=== PATIENT | male | born 1935 | race Caucasian/White ===

== ENCOUNTER 2017-01-29 17:26 | Inpatient (IN) | payer MEDICARE, OTHER ==
[~2017-01-29] VITALS: Ht 170.2 cm; Wt 59.0 kg
--- NOTE | 2017-01-31 17:30 | NUR ---
ADMITTED A 81 YEAR OLD MALE PATIENT FROM [facility] REPORT GIVEN BY MEIR LOTT WITH DIAGNOSES OF CHF, COPD EXACERBATION, PNEUMONIA, SEPSIS, RESPIRATORY FAILURE AND NSTEMI. PATIENT WAS ACCOMPANIED BY 2 EMT STAFF ON A GURNEY, DROWSY. PER EMT STAFF, PATIENT WAS GIVEN XANAX PRIOR TO [facility]SP[facility] DUE TO ANXIETY. ASSESSMENT DONE, NO SOB, DISTRESS OR DISCOMFORTS NOTED AT THIS TIME. PATIENT REMAINED TO BE DROWSY. ALL NEEDS WERE ATTENDED AND ANTICIPATED, CALL LIGHT PLACED WITHIN REACH. PATIENT WAS ORIENTED TO PATIENT ROOM, HOW TO USE THE CALL LIGHT. CALL LIGHT PLACED WITHIN REACH. WILL CONTINUE TO MONITOR CLOSELY.
[2017-01-31] MEDS ORDERED: Z GUARD REMEDY PASTE 57 GM TUBE TOP PRN (18:15)
[2017-01-31] MEDS ORDERED: FLUT1DIS28 INH (18:42)
[2017-01-31] MEDS ORDERED: RIVA15TA PO (18:42)
[2017-01-31] MEDS ORDERED: LACT1CAP57 PO (18:42)
[2017-01-31] MEDS ORDERED: PRED20TA PO (18:42)
[2017-01-31] MEDS ORDERED: ALBU8.5H8 INH (18:42)
[2017-01-31] MEDS ORDERED: ALPR1TAB7 PO (18:42)
[2017-01-31] MEDS ORDERED: ATOR40TA PO (18:42)
[2017-01-31] MEDS ORDERED: TAMS0.4C34 PO (18:42)
[2017-01-31] MEDS ORDERED: HYDR-3326 PO (18:42)
[2017-01-31] MEDS ORDERED: IPRA0.2S48 IH (18:42)
[2017-01-31] MEDS ORDERED: LEVO500T90 PO (18:42)
[2017-01-31] MEDS ORDERED: LISI-607 PO (18:42)
[2017-01-31] MEDS ORDERED: ESCI10TA55 PO (18:42)
[2017-01-31] MEDS ORDERED: DONE10TA44 PO (18:42)
[2017-01-31] MEDS ORDERED: ASPI81TA31 PO (18:42)
[2017-01-31] MEDS ORDERED: PRED10TA PO (18:42)
[2017-01-31] MEDS ORDERED: HYDR-4076 PO (18:42)
[2017-01-31] MEDS ORDERED: ESOM40CA PO (18:42)
[2017-01-31] MEDS ORDERED: MAGN30OR PO (18:55)
[2017-01-31] MEDS ORDERED: ONDA4SYR IVP (18:55)
[2017-01-31] MEDS ORDERED: IPRA0.2S48 NEB (18:55)
[2017-01-31] MEDS ORDERED: LEVO750P3 IV (18:55)
[2017-01-31] MEDS ORDERED: MUPI22OI2 TP (18:55)
[2017-01-31] MEDS ORDERED: ACET-73 PO (18:55)
[2017-01-31] MEDS ORDERED: ALBU2.5V13 IH (18:55)
--- NOTE | 2017-01-31 19:00 | NUR ---
Endorsed routine admission, medication reconciliation done by Dr. Bubba Ho. Pictures taken, attached to chart.
[2017-01-31] MEDS ORDERED: ACETAMINOPHEN ES 500 MG TABLET PO PRN (19:15)
[2017-01-31] MEDS ORDERED: hydrALAZINE HCL 25 MG TABLET PO PRN (19:15)
--- NOTE | 2017-01-31 19:30 | NUR ---
Patient received in bed. Alert and verbally responsive with episodes of confusion. Able to make needs known. Patient noted to be restless and also moaning out loud. No c/o pain and discomfort at this time. No acute distress noted. No SOB. On room air. Patient noted left upper arm Midline. Patent and intact. Kept clean and dry. Spoke with Anastasiia Harvey who is a neighbor of the patient and helps take care of him. She was also seeing him when he was at [facility]. Anastasiia was able to answer some questions for me regarding patients history. Anastasiia also notified me of patient's nephew, Sukhjinder Patterson who lives in [place]. He is aware patient is here at [facility]. All needs attended to promptly. Call light within reach. Will continue to monitor.
[2017-01-31 20:00] VITALS: BP 157/96
[2017-01-31] MEDS: IPRATROPIUM BROMIDE 0.5 MG/2.5 ML NEBU NEB SCH ×2 (20:24→23:30)
[2017-01-31] MEDS: ALBUTEROL SULFATE 2.5 MG/ 0.5 ML NEBU IH SCH ×2 (20:25→23:30)
[2017-01-31] MEDS: TAMSULOSIN HCL 0.4 MG CAP.SR.24H PO SCH (22:04)
[2017-01-31] MEDS: LISINOPRIL 5 MG TABLET PO SCH (22:04)
[2017-01-31] MEDS: MUPIROCIN 2% OINT 22 GM TUBE TP SCH (22:05)
[2017-01-31] MEDS: ATORVASTATIN 40 MG TABLET PO SCH (22:05)
[2017-01-31] MEDS: ALPRAZOLAM 0.5 MG TABLET PO PRN (22:05)
[2017-02-01] MEDS: HYDROCODONE/APAP 5-325MG TABLET PO PRN ×2 (00:54→20:42)
[2017-02-01] MEDS: IPRATROPIUM BROMIDE 0.5 MG/2.5 ML NEBU NEB SCH ×6 (03:30→23:30)
[2017-02-01] MEDS: ALBUTEROL SULFATE 2.5 MG/ 0.5 ML NEBU IH SCH ×6 (03:30→23:30)
--- NOTE | 2017-02-01 06:34 | NUR ---
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 All contact precautions taken. Slept intermittently throughout the night. Patient yelling and looking for phone director home. Verbalized to patient that he just came in with his cell phone and no director home. No c/o pain and discomfort. No acute distress. No SOB. Kept clean and dry. Assisted with fluids. No aspiration noted. All needs attended to promptly. Call light within reach. Will continue to monitor.
[2017-02-01 07:40] LABS: EOSINOPHILS # (AUTO) 0.3 K/uL (0.0-0.7); EOSINOPHILS % (AUTO) 1.7 % (0.0-7.0); HEMATOCRIT 44.9 % (36.7-47.1); HEMOGLOBIN 15.2 g/dL (12.5-16.3); LYMPHOCYTES # (AUTO) 2.7 K/uL (20.0-40.0); LYMPHOCYTES % (AUTO) 15.6 % (20.5-51.5); MEAN CORPUSCULAR HEMOGLOBIN 27.7 uug (23.8-33.4); MEAN CORPUSCULAR HGB CONC 34 g/dL (32.5-36.3); MEAN CORPUSCULAR VOLUME 81.9 fL (73.0-96.2); MONOCYTES # (AUTO) 0.9 K/uL (2.0-10.0); MONOCYTES % (AUTO) 5.3 % (0.0-11.0); NEUTROPHILS # (AUTO) 13.2 K/uL (1.8-8.9); NEUTROPHILS % (AUTO) 77.4 % (38.5-71.5); PLATELET COUNT (AUTO) 193 K/uL (152-348); RED BLOOD CELL COUNT(AUTO) 5.48 MIL/uL (4.06-5.63)
[2017-02-01 08:06] LABS: CARBON DIOXIDE 26 mmol/L (21-32); CHLORIDE 105 mmol/L (98-107); CREATININE 1.2 mg/dL (0.6-1.3); GLUCOSE 145 mg/dL (74-106); PHOSPHOROUS 3.3 mg/dL (2.5-4.9); POTASSIUM 3.2 mmol/L (3.5-5.1); UREA NITROGEN, BLOOD 28 mg/dL (7-18)
[2017-02-01] MEDS: FLUTICASONE/VILANTEROL 1 EACH BLST.W.DEV INH SCH (08:07)
[2017-02-01] MEDS: ASPIRIN 81 MG TAB.CHEW PO SCH (08:09)
[2017-02-01] MEDS: ALPRAZOLAM 0.5 MG TABLET PO PRN ×2 (08:09→16:45)
[2017-02-01] MEDS: LACTOBACILLUS RHAMNOSUS GG 1 EACH CAPSULE PO SCH ×2 (08:09→16:48)
[2017-02-01] MEDS: predniSONE 20 MG TABLET PO SCH (08:10)
[2017-02-01] MEDS: LISINOPRIL 5 MG TABLET PO SCH ×2 (08:10→16:51)
[2017-02-01] MEDS: RIVAROXABAN 15 MG TABLET PO SCH ×2 (08:11→16:45)
[2017-02-01 08:52] VITALS: BP 157/84
[2017-02-01] MEDS ORDERED: FLUTICASONE/SALMETEROL 250/50 INHALER INH SCH (09:00)
[2017-02-01 09:10] LABS: CHOLESTEROL 130 mg/dL (<200); HDL CHOLESTEROL 45 mg/dL (40-60); TRIGLYCERIDES 99 MG/DL (30-150)
[2017-02-01] MEDS: MUPIROCIN 2% OINT 22 GM TUBE TP SCH (09:15)
[2017-02-01] MEDS ORDERED: ESCITALOPRAM OXALATE 10 MG TABLET PO SCH (10:51)
[2017-02-01 11:10] LABS: LYMPHOCYTES % (MANUAL) 22 % (20-40); METAMYELOCYTES % 1 % (0-1); MONOCYTES % (MANUAL) 7 % (2-10); NEUTROPHILS % (MANUAL) 70 % (42-75)
[2017-02-01] MEDS: DONEPEZIL 10 MG TABLET PO SCH (12:38)
[2017-02-01] MEDS: ESCITALOPRAM OXALATE 10 MG TABLET PO SCH (12:38)
[2017-02-01] MEDS ORDERED: POTASSIUM CHLORIDE 20 MEQ TAB.PRT.SR PO ONE (13:00)
--- NOTE | 2017-02-01 19:30 | NUR ---
Received patient laying in bed, resting. AAO x3. Noted patient moaning, talking out loud, and appeared to be restless. Patient denied of any concerns. No acute distress noted. No c/o pain or discomfort at this time. Left upper arm midline patent and intact. Contact isolation maintained. Safety measures observed. Call light within reach. Will continue to monitor.
--- NOTE | 2017-02-01 19:35 | NUR ---
Patient refused to get his vital signs taken. Risks and benefits explained. Teachings provided. Still refused. Will continue to monitor.
[2017-02-01] MEDS: ATORVASTATIN 40 MG TABLET PO SCH (20:38)
[2017-02-01] MEDS: TAMSULOSIN HCL 0.4 MG CAP.SR.24H PO SCH (20:38)
[2017-02-02] MEDS: ALBUTEROL SULFATE 2.5 MG/ 0.5 ML NEBU IH SCH ×5 (08:00→23:30)
[2017-02-02] MEDS: IPRATROPIUM BROMIDE 0.5 MG/2.5 ML NEBU NEB SCH ×5 (08:00→23:30)
[2017-02-02] MEDS: FLUTICASONE/VILANTEROL 1 EACH BLST.W.DEV INH SCH (09:00)
[2017-02-02] MEDS: RIVAROXABAN 15 MG TABLET PO SCH ×2 (10:06→16:15)
[2017-02-02] MEDS: ASPIRIN 81 MG TAB.CHEW PO SCH (10:08)
[2017-02-02] MEDS: LACTOBACILLUS RHAMNOSUS GG 1 EACH CAPSULE PO SCH ×2 (10:08→16:14)
[2017-02-02] MEDS: predniSONE 20 MG TABLET PO SCH (10:08)
[2017-02-02] MEDS: DONEPEZIL 10 MG TABLET PO SCH (10:10)
[2017-02-02] MEDS: ESCITALOPRAM OXALATE 10 MG TABLET PO SCH (10:10)
[2017-02-02] MEDS: HYDROCODONE/APAP 5-325MG TABLET PO PRN ×2 (10:11→21:20)
[2017-02-02] MEDS: LISINOPRIL 5 MG TABLET PO SCH ×2 (10:12→16:14)
[2017-02-02] MEDS: ALPRAZOLAM 0.5 MG TABLET PO PRN (16:13)
[2017-02-02] MEDS ORDERED: DICYCLOMINE HCL 20 MG/2 ML AMPUL IM ONE (19:15)
--- NOTE | 2017-02-02 19:30 | NUR ---
Received patient laying in bed. AAO x3. Moaning and making loud sounds. No acute distress noted. No SOB. Dr. Garrett at bedside talking to the patient. Pt complaining of abdominal pain, Dr. Garrett ordered Dicyclomine HCL IM 20 MG ONCE for colic. Will follow order as prescribed. Contact isolation maintained. Safety measures observed. Call light within reach. Will continue to monitor.
[2017-02-02 20:00] VITALS: BP 134/87
[2017-02-02] MEDS: ATORVASTATIN 40 MG TABLET PO SCH (21:20)
[2017-02-02] MEDS: TAMSULOSIN HCL 0.4 MG CAP.SR.24H PO SCH (21:20)
[2017-02-03] MEDS: ALBUTEROL SULFATE 2.5 MG/ 0.5 ML NEBU IH SCH ×6 (03:26→23:59)
[2017-02-03] MEDS: IPRATROPIUM BROMIDE 0.5 MG/2.5 ML NEBU NEB SCH ×6 (03:26→23:59)
--- NOTE | 2017-02-03 05:45 | NUR ---
Patient slept intermittently at night. Episodes of moaning a few times, attended to promptly but patient denied any concerns and went back to sleep. Left IV midline upper arm patent and intact. No acute distress noted. No c/o pain or discomfort. All needs attended t/o the night. Contact isolation maintained. Safety measures maintained. Call light within reach. Continue to monitor.
[2017-02-03 08:00] VITALS: BP 149/86
[2017-02-03] MEDS: ASPIRIN 81 MG TAB.CHEW PO SCH (08:51)
[2017-02-03] MEDS: predniSONE 20 MG TABLET PO SCH (08:51)
[2017-02-03] MEDS: ESCITALOPRAM OXALATE 10 MG TABLET PO SCH (08:52)
[2017-02-03] MEDS: LACTOBACILLUS RHAMNOSUS GG 1 EACH CAPSULE PO SCH ×2 (08:52→17:21)
[2017-02-03] MEDS: LISINOPRIL 5 MG TABLET PO SCH ×2 (08:53→17:23)
[2017-02-03] MEDS: DONEPEZIL 10 MG TABLET PO SCH (08:53)
[2017-02-03] MEDS: RIVAROXABAN 15 MG TABLET PO SCH ×2 (09:44→17:22)
[2017-02-03] MEDS: FLUTICASONE/VILANTEROL 1 EACH BLST.W.DEV INH SCH (09:46)
--- NOTE | 2017-02-03 10:16 | NUR ---
pt seen on rounding. pt bp elevated. pt tolerates room air satting wnl. no sob noted. pt continues to need reorientation because pt shows signs of confusion. pt is able to ambulate with assistance using a walker. pt had a bowel movement with OT. nurse was not notified so stool sample was not obtained. pt took meds as prescribed. pt continues to refuse some commands but follow others. pt complains of no pain and participating on OT therapy. will continue to monitor.
[2017-02-03] MEDS: ALPRAZOLAM 0.5 MG TABLET PO PRN (16:06)
[2017-02-03] MEDS ORDERED: ACETAMINOPHEN/CODEINE 300-60 MG TABLET PO PRN ×2 (17:00→17:15)
[2017-02-03] MEDS ORDERED: ONDANSETRON HCL 4 MG TABLET PO PRN (17:00)
[2017-02-03] MEDS ORDERED: HYDROCODONE/APAP 10-325 MG TABLET PO SCH (17:00)
--- NOTE | 2017-02-03 17:37 | NUR ---
pt found to be a opiod addiction stated by dr santana. pt put on regimen of tylenol with codeine q 8h. pt has withdrawal symptoms from opiod addiction. pt found to have 90 dollars of godinez bedside after nephew gave a visit. will continue to monitor.
[2017-02-03] MEDS ORDERED: METHADONE HCL 10 MG TABLET PO SCH (18:00)
--- NOTE | 2017-02-03 19:10 | NUR ---
PT COMPLAINING OF CHEST PAIN, SAYS "IT FEELS LIKE CRUSHING" DENIES ANY ARM OR SHOULDER PAIN. VS 125/78, HR 105, O2 93% ROOM AIR. PLACED O2 2L NC. AWAITING TO HEAR FROM Addendum: 02/03/17 at 2205 by EMILE RODRIGUEZ RN CHAIN CARRIER MADE AWARE.
--- NOTE | 2017-02-03 19:23 | NUR ---
pt complaining on chest pain. labs chest x ray and ekg ordered. called esther and dr lee. both mds aware. awaiting new orders from doctors.
[2017-02-03] MEDS: HYDROCODONE/APAP 5-325MG TABLET PO PRN ×2 (19:42→23:49)
[2017-02-03] MEDS ORDERED: NITROGLYCERIN 0.4 MG/TAB BOTTLE SL ONE ×2 (19:45→20:04)
[2017-02-03 19:59] LABS: BASOPHILS # (AUTO) 0.3 K/uL (0.0-8.0); HEMATOCRIT 48.9 % (40-50); HEMOGLOBIN 16.3 G/DL (14.0-18.0); LYMPHOCYTES # (AUTO) 2.1 K/UL (0.8-4.8); LYMPHOCYTES % (AUTO) 7.9 % (20.5-51.5); MEAN CORPUSCULAR HEMOGLOBIN 27.6 UUG (27.0-31.0); MEAN CORPUSCULAR HGB CONC 33 g/dL (32.0-37.0); MEAN CORPUSCULAR VOLUME 83.1 FL (82.0-92.0); MONOCYTES # (AUTO) 0.3 K/UL (0.1-1.30); NEUTROPHILS # (AUTO) 23.6 K/UL (1.8-8.9); NEUTROPHILS % (AUTO) 90.1 % (38.5-71.5); PLATELET COUNT (AUTO) 276 K/UL (150-450); RED BLOOD CELL COUNT(AUTO) 5.89 MIL/UL (4.7-6.1)
[2017-02-03 20:00] VITALS: BP 119/78
[2017-02-03] MEDS ORDERED: NITROGLYCERIN 0.3 MG/TAB BOTTLE SL PRN (20:00)
--- NOTE | 2017-02-03 20:00 | NUR ---
DR MORTENSEN ORDERED NITRO 0.4MG SL ONCE.
[2017-02-03 20:02] LABS: CARBON DIOXIDE 25 mmol/L (21-32); CHLORIDE 102 mmol/L (98-107); CREATININE 1.6 mg/dL (0.6-1.3); GLUCOSE 188 mg/dL (74-106); POTASSIUM 4.2 mmol/L (3.5-5.1); UREA NITROGEN, BLOOD 37 mg/dL (7-18)
[2017-02-03 20:05] LABS: WHITE BLOOD COUNT (AUTO) 26.3 K/UL (4.0-11.2)
[2017-02-03 20:19] LABS: BAND % (MANUAL) 6 % (0-10); LYMPHOCYTES % (MANUAL) 10 % (20-40); MONOCYTES % (MANUAL) 2 % (2-10); NEUTROPHILS % (MANUAL) 82 % (42-75)
--- NOTE | 2017-02-03 20:20 | NUR ---
SPOKE WITH DR MORTENSEN CONCERNING ELEVATED WBC 26.3, NO NEW ORDERS GIVEN AT THIS TIME. SPOKE WITH NEPHEW, ANTONIA WAGNER, GAVE UPDATE OF UNCLE'S STATUS. VERBALIZED UNDERSTANDING. WILL CONTINUE TO MONITOR.
[2017-02-03] MEDS: TAMSULOSIN HCL 0.4 MG CAP.SR.24H PO SCH (20:49)
[2017-02-03] MEDS: ATORVASTATIN 40 MG TABLET PO SCH (20:49)
--- NOTE | 2017-02-03 22:00 | NUR ---
NO COMPLAINTS OF CHEST PAIN AT THIS TIME. PT STATES "NO PAIN AT ALL". WILL CONTINUE TO MONITOR.
[2017-02-03] MEDS ORDERED: NITROGLYCERIN 0.3 MG/TAB BOTTLE SL ONE (22:15)
--- NOTE | 2017-02-03 23:02 | NUR ---
FOR NITRO 0.4MG SL DR ORDERED ONCE DOSE, NOT PRN, EDITED DOSE TO ONCE AND RECURRED AT 2214. DR ONLY ORDERED ONE DOSE OF NITRO. ONLY ONE DOSE WAS GIVEN AT 2000.
--- NOTE | 2017-02-04 02:40 | NUR ---
Pt asleep. No sob noted. HHN tx not given. RN Reba lowe.
[2017-02-04] MEDS: IPRATROPIUM BROMIDE 0.5 MG/2.5 ML NEBU NEB SCH ×6 (03:00→22:53)
[2017-02-04] MEDS: ALBUTEROL SULFATE 2.5 MG/ 0.5 ML NEBU IH SCH ×6 (03:00→22:53)
[2017-02-04] MEDS: ACETAMINOPHEN/CODEINE 300-60 MG TABLET PO SCH ×3 (05:34→21:13)
[2017-02-04] MEDS ORDERED: ACETAMINOPHEN/CODEINE 300-60 MG TABLET ONE (05:44)
--- NOTE | 2017-02-04 06:43 | NUR ---
PT RESTING IN BED. NO DISTRESS NOTED. MIDLINE INTACT AND PATENT. NO COMPLAINTS OF CHEST PAIN. NORCO GIVEN FOR GENERALIZED PAIN. SLEPT WELL THROUGHOUT THE NIGHT. PT STATES "I FEEL SO MUCH BETTER". CLEAN AND DRY. SAFETY MAINTAINED. CALL LIGHT WITHIN REACH.
[2017-02-04 07:32] LABS: CARBON DIOXIDE 26 mmol/L (21-32); CHLORIDE 105 mmol/L (98-107); CREATININE 1.5 mg/dL (0.6-1.3); GLUCOSE 93 mg/dL (74-106); MAGNESIUM 1.9 mg/dL (1.8-2.4); PHOSPHOROUS 4.4 mg/dL (2.5-4.9); POTASSIUM 3.6 mmol/L (3.5-5.1); UREA NITROGEN, BLOOD 35 mg/dL (7-18)
[2017-02-04 08:00] VITALS: BP 114/67
[2017-02-04 08:14] LABS: BASOPHILS % (AUTO) 0.1 % (0.0-2.0); EOSINOPHILS % (AUTO) 0.1 % (0.0-7.0); HEMATOCRIT 41.7 % (36.7-47.1); HEMOGLOBIN 14.4 g/dL (12.5-16.3); LYMPHOCYTES % (AUTO) 12.9 % (20.5-51.5); MEAN CORPUSCULAR HEMOGLOBIN 28.2 uug (23.8-33.4); MEAN CORPUSCULAR HGB CONC 35 g/dL (32.5-36.3); MEAN CORPUSCULAR VOLUME 81.8 fL (73.0-96.2); MONOCYTES % (AUTO) 4.1 % (0.0-11.0); NEUTROPHILS # (AUTO) 19.5 K/uL (1.8-8.9); NEUTROPHILS % (AUTO) 82.8 % (38.5-71.5); PLATELET COUNT (AUTO) 211 K/uL (152-348); RED BLOOD CELL COUNT(AUTO) 5.09 MIL/uL (4.06-5.63); WHITE BLOOD COUNT (AUTO) 23.5 K/uL (3.6-10.2)
[2017-02-04] MEDS: LACTOBACILLUS RHAMNOSUS GG 1 EACH CAPSULE PO SCH ×2 (08:46→17:17)
[2017-02-04] MEDS: predniSONE 20 MG TABLET PO SCH (08:46)
[2017-02-04] MEDS: DONEPEZIL 10 MG TABLET PO SCH (08:47)
[2017-02-04] MEDS: ESCITALOPRAM OXALATE 10 MG TABLET PO SCH (08:47)
[2017-02-04] MEDS: FLUTICASONE/VILANTEROL 1 EACH BLST.W.DEV INH SCH (08:47)
[2017-02-04] MEDS: LISINOPRIL 5 MG TABLET PO SCH ×2 (08:47→17:00)
[2017-02-04] MEDS: ASPIRIN 81 MG TAB.CHEW PO SCH (08:47)
[2017-02-04] MEDS: RIVAROXABAN 15 MG TABLET PO SCH ×2 (08:49→17:18)
[2017-02-04 10:01] LABS: BAND % (MANUAL) 4 % (0-10); LYMPHOCYTES % (MANUAL) 13 % (20-40); MONOCYTES % (MANUAL) 2 % (2-10); NEUTROPHILS % (MANUAL) 81 % (42-75)
--- NOTE | 2017-02-04 10:14 | NUR ---
pt seen on rounding. pt states that he feels better compared to last night. pt was asking for codeine but already given as scheduled. was instrcuted to wait. pt understands. pt given meds. bp stable. no chest pain. pt took breakfast and wanted to have a shave. will continue to monitor. stool sample still pending.
--- NOTE | 2017-02-04 18:14 | NUR ---
pt blood pressure decreased at night. with held blood pressure medications. pt asymptomatic. pt has not had a bowel movement therefore no stool sample was obtained. notified md rios and ordered dulcolax 2 tab daily. pt assisted to needs during shift. pt continues to overestimate own ability during shift and was advised not to try to walk on his own to prevent falls. continues to overestimate. pt given pain meds as scheduled. no signs of anxiety noted. will endorse to hands and dial inspector nurse.
[2017-02-04] MEDS ORDERED: BISACODYL 5 MG TABLET.DR PO ONE (18:15)
--- NOTE | 2017-02-04 19:30 | NUR ---
RECEIVED PT FROM DAY SHIFT NURSE. SHIFT REPORT AT BEDSIDE. FAMILY AT BEDSIDE. PATIENT ALERT BUT SLIGHTLY CONFUSED. PT COMPLAINING OF ABDOMINAL PAIN AT START OF SHIFT DUE TO CONSTIPATION. DULCOLAX ORDERED FROM DAY SHIFT NURSE BY MD. WAITING FOR MEDICATION TO TAKE EFFECT. WAITING TO OBTAIN STOOL SAMPLE FROM PT FOR STOOL OCCULT BLOOD TEST. NO SOB, OR ACUTE DISTRESS NOTED. BP AT 106/69 AT START OF SHIFT, INCREASING FROM PREVIOUS BP DURING DAY SHIFT. PERTINENT ASSESSMENT DONE. SAFETY MEASURES IMPLEMENTED. CALL LIGHT PLACED WITHIN REACH OF PT. WILL CONTINUE TO MONITOR PT THROUGH OUT SHIFT.
[2017-02-04 20:41] VITALS: BP 104/69
[2017-02-04] MEDS: ATORVASTATIN 40 MG TABLET PO SCH (20:41)
[2017-02-04] MEDS: TAMSULOSIN HCL 0.4 MG CAP.SR.24H PO SCH (20:41)
--- NOTE | 2017-02-04 22:12 | NUR ---
CONTACTED DR. MORTENSEN REGARDING PT STATUS WITH MRSA. WHEN PT WAS ADMITTED TO ARU ON 01/31, PT WAS MRSA + FOR NARES. THERE WAS AN ORDER FOR BACTROBAN OINTMENT, HOWEVER, THE ORDER WAS STOPPED ON THE . ASKED DR. MORTENSEN IF WE COULD DO A REPEAT MRSA TEST IN AM. MD FAGAN'D REPEAT MRSA SWAB TEST. WILL CONTINUE TO MONITOR PT.
--- NOTE | 2017-02-04 23:37 | NUR ---
MRSA SWAB COLLECTION COMPLETED PER MD ORDERED. WAITING FOR RESULTS FROM LAB.
[2017-02-05 00:56] LABS: *OCCULT BLOOD STOOL POSITIVE (NEGATIVE)
[2017-02-05] MEDS: IPRATROPIUM BROMIDE 0.5 MG/2.5 ML NEBU NEB SCH ×6 (02:33→22:34)
[2017-02-05] MEDS: ALBUTEROL SULFATE 2.5 MG/ 0.5 ML NEBU IH SCH ×6 (02:33→22:34)
--- NOTE | 2017-02-05 02:34 | NUR ---
Pt asleep. No distress noted. HHN tx not given. RN Garcia aware.
[2017-02-05] MEDS: ACETAMINOPHEN/CODEINE 300-60 MG TABLET PO SCH ×3 (06:32→21:30)
--- NOTE | 2017-02-05 07:00 | NUR ---
PT SLEPT INTERMITTENTLY THROUGH OUT THE SHIFT. PT COMPLAINED OF ABDOMINAL PAIN AT START OF SHIFT DUE TO CONSTIPATION. AFTER BM, PT WAS RELIEVED OF PAIN. NO SIGNS OF SOB OR ACUTE DISTRESS NOTED. ALL NEEDS ATTENDED TO. MEDICATIONS ADMINISTERED ORDERED. CALL LIGHT WITHIN REACH OF PT. WILL ENDORSE TO MORNING SHIFT NURSE.
[2017-02-05 07:18] LABS: BASOPHILS # (AUTO) 0.2 K/uL (0.0-8.0); BASOPHILS % (AUTO) 0.6 % (0.0-2.0); EOSINOPHILS % (AUTO) 0.1 % (0.0-7.0); HEMOGLOBIN 14.7 G/DL (14.0-18.0); LYMPHOCYTES # (AUTO) 3.4 K/UL (0.8-4.8); LYMPHOCYTES % (AUTO) 10.7 % (20.5-51.5); MEAN CORPUSCULAR HEMOGLOBIN 28.4 UUG (27.0-31.0); MEAN CORPUSCULAR HGB CONC 34 g/dL (32.0-37.0); MEAN CORPUSCULAR VOLUME 83.1 FL (82.0-92.0); MONOCYTES # (AUTO) 0.3 K/UL (0.1-1.30); MONOCYTES % (AUTO) 0.9 % (0.0-11.0); NEUTROPHILS # (AUTO) 27.5 K/UL (1.8-8.9); NEUTROPHILS % (AUTO) 87.7 % (38.5-71.5); PLATELET COUNT (AUTO) 219 K/UL (150-450); RED BLOOD CELL COUNT(AUTO) 5.17 MIL/UL (4.7-6.1)
[2017-02-05 07:22] VITALS: BP 97/54
[2017-02-05 07:40] LABS: CARBON DIOXIDE 23 mmol/L (21-32); CHLORIDE 103 mmol/L (98-107); CREATININE 1.9 mg/dL (0.6-1.3); GLUCOSE 103 mg/dL (74-106); MAGNESIUM 2.1 mg/dL (1.8-2.4); PHOSPHOROUS 5.6 mg/dL (2.5-4.9); POTASSIUM 5.7 mmol/L (3.5-5.1); UREA NITROGEN, BLOOD 50 mg/dL (7-18)
--- NOTE | 2017-02-05 07:56 | NUR ---
PATIENT NOTED SITTING IN BED, AWAKE, LOOKING AT CELL PHONE, SBAR RECEIVED FROM NIGHT NURSE, DENIES PAIN AT THIS TIME, NO SIGNS OF DISTRESS, CALL LIGHT IN REACH, BED LOCKED AND IN LOWEST POSITION
[2017-02-05 08:07] LABS: WHITE BLOOD COUNT (AUTO) 31.4 K/UL (4.0-11.2)
--- NOTE | 2017-02-05 08:13 | NUR ---
SUKHI MORTENSEN NOTIFIED OF NEW CRITICAL LAB VALUE...WBC (31.4)..AWAITING NEW ORDERS
[2017-02-05] MEDS: LISINOPRIL 5 MG TABLET PO SCH (09:00)
[2017-02-05] MEDS: DONEPEZIL 10 MG TABLET PO SCH (09:00)
[2017-02-05] MEDS: predniSONE 20 MG TABLET PO SCH (09:00)
[2017-02-05] MEDS: ASPIRIN 81 MG TAB.CHEW PO SCH (09:00)
[2017-02-05] MEDS: LACTOBACILLUS RHAMNOSUS GG 1 EACH CAPSULE PO SCH ×2 (09:00→16:21)
[2017-02-05] MEDS: RIVAROXABAN 15 MG TABLET PO SCH (09:07)
[2017-02-05] MEDS: FLUTICASONE/VILANTEROL 1 EACH BLST.W.DEV INH SCH (09:08)
[2017-02-05] MEDS ORDERED: IV NS 1000 ML 1,000 ML IV ONE (10:30)
[2017-02-05 10:52] LABS: BAND % (MANUAL) 3 % (0-10); LYMPHOCYTES % (MANUAL) 13 % (20-40); METAMYELOCYTES % 1 % (0-1); MONOCYTES % (MANUAL) 1 % (2-10); MYELOCYTES % 1 % (0-0); NEUTROPHILS % (MANUAL) 81 % (42-75)
[2017-02-05] MEDS: RIVAROXABAN 10 MG TABLET PO SCH (16:21)
[2017-02-05] MEDS ORDERED: RIVAROXABAN 15 MG TABLET PO SCH (17:00)
--- NOTE | 2017-02-05 19:30 | NUR ---
Received patient sleeping comfortably in bed. Left upper arm midline noted. NS 100 mL/ hr running at this time. No acute distress noted. As per endorsement from day shift Gisela RN, patient's WBC is critically high and DNP [place] was notified and he ordered to taper down prednisone as it is the reason for the increased WBC. MRSA result pending, if positive, call DNP [place]. Contact isolation maintained. Safety measures observed. Call light within reach. Will continue to monitor.
[2017-02-05 20:00] VITALS: BP 90/50
[2017-02-05] MEDS: ATORVASTATIN 40 MG TABLET PO SCH (21:30)
[2017-02-05] MEDS: TAMSULOSIN HCL 0.4 MG CAP.SR.24H PO SCH (21:30)
--- NOTE | 2017-02-05 21:30 | NUR ---
Urine clean catch, collected and sent to lab.
[2017-02-05 22:01] LABS: *BILIRUBIN,URIN NEGATIVE (NEGATIVE); *BLOOD, URINE 3+ (NEGATIVE); *CLARITY,URINE SLIGHTLY CLOUDY (CLEAR); *COLOR,URINE YELLOW (YELLOW); *KETONES,URINE NEGATIVE (NEGATIVE); *PROTEIN,URINE NEGATIVE (NEGATIVE); *UROBILINOGEN,URINE 0.2 E.U./dl (NORMAL); LEUKOCYTE ESTERASE ,URINE NEGATIVE (NEGATIVE); NITRITE, URINE NEGATIVE (NEGATIVE); UGLUCOSE NEGATIVE (NEGATIVE)
[2017-02-05 22:11] LABS: BACTERIA,URINE NONE SEEN /HPF (NONE SEEN); RBC,URINE 20-50 /HPF (0-3); SQUAMOUS EPITHELIAL CELL,UR FEW /HPF (NONE SEEN); URIC ACID CRYSTALS,URINE FEW /HPF (NONE SEEN)
[2017-02-05 22:12] LABS: *CREATININE,URINE 115.5 mg/dL (30-125); *URINE TOTAL PROTEIN RANDOM 28.1 mg/dL (<150/24HR)
--- NOTE | 2017-02-05 23:00 | NUR ---
Urinalysis result came back. Notified Dr. Ho. Ordered levaquin 500 mg PO daily x7 days. New order noted.
[2017-02-06] MEDS: ALBUTEROL SULFATE 2.5 MG/ 0.5 ML NEBU IH SCH ×6 (03:30→23:50)
[2017-02-06] MEDS: IPRATROPIUM BROMIDE 0.5 MG/2.5 ML NEBU NEB SCH ×6 (03:30→23:50)
--- NOTE | 2017-02-06 05:49 | NUR ---
Patient slept comfortably t/o the night. No acute distress noted. Pain medication given as prescribed. Contact isolation maintained. Safety measures observed.Call light within reach. Will endorse to day shift RN. Continue to monitor.
[2017-02-06] MEDS: ACETAMINOPHEN/CODEINE 300-60 MG TABLET PO SCH ×3 (06:29→21:31)
[2017-02-06 07:02] LABS: EOSINOPHILS % (AUTO) 0.1 % (0.0-7.0); HEMATOCRIT 38.5 % (36.7-47.1); HEMOGLOBIN 12.9 g/dL (12.5-16.3); LYMPHOCYTES # (AUTO) 3.1 K/uL (20.0-40.0); LYMPHOCYTES % (AUTO) 12.8 % (20.5-51.5); MEAN CORPUSCULAR HEMOGLOBIN 27.9 uug (23.8-33.4); MEAN CORPUSCULAR HGB CONC 34 g/dL (32.5-36.3); MEAN CORPUSCULAR VOLUME 82.9 fL (73.0-96.2); MONOCYTES # (AUTO) 0.7 K/uL (2.0-10.0); MONOCYTES % (AUTO) 2.8 % (0.0-11.0); NEUTROPHILS # (AUTO) 20.2 K/uL (1.8-8.9); NEUTROPHILS % (AUTO) 84.3 % (38.5-71.5); PLATELET COUNT (AUTO) 208 K/uL (152-348); RED BLOOD CELL COUNT(AUTO) 4.65 MIL/uL (4.06-5.63)
[2017-02-06 07:24] VITALS: BP 112/58
[2017-02-06 07:27] LABS: ALANINE AMINOTRANSFERASE 35 U/L (16-63); ALKALINE PHOSPHATASE 46 U/L (50-136); ASPARTATE AMINOTRANSFERASE 13 U/L (15-37); BILIRUBIN,TOTAL 0.5 mg/dL (0.2-1.0); CARBON DIOXIDE 25 mmol/L (21-32); CHLORIDE 106 mmol/L (98-107); CREATINE KINASE, TOTAL 60 U/L (39-308); CREATININE 1.5 mg/dL (0.6-1.3); GLUCOSE 88 mg/dL (74-106); MAGNESIUM 1.9 mg/dL (1.8-2.4); PHOSPHOROUS 3.6 mg/dL (2.5-4.9); POTASSIUM 4.1 mmol/L (3.5-5.1); TOTAL PROTEIN, SERUM 5.8 g/dL (6.4-8.2); UREA NITROGEN, BLOOD 43 mg/dL (7-18)
[2017-02-06 08:16] LABS: LYMPHOCYTES % (MANUAL) 13 % (20-40); MONOCYTES % (MANUAL) 3 % (2-10); NEUTROPHILS % (MANUAL) 84 % (42-75)
[2017-02-06] MEDS ORDERED: LEVOFLOXACIN 500 MG TABLET PO SCH (09:00)
[2017-02-06] MEDS: DONEPEZIL 10 MG TABLET PO SCH (09:50)
[2017-02-06] MEDS: ASPIRIN 81 MG TAB.CHEW PO SCH (09:50)
[2017-02-06] MEDS: FLUTICASONE/VILANTEROL 1 EACH BLST.W.DEV INH SCH (09:50)
[2017-02-06] MEDS: predniSONE 20 MG TABLET PO SCH (09:50)
[2017-02-06] MEDS: LACTOBACILLUS RHAMNOSUS GG 1 EACH CAPSULE PO SCH ×2 (09:50→17:15)
[2017-02-06] MEDS: RIVAROXABAN 10 MG TABLET PO SCH ×2 (09:51→17:13)
[2017-02-06] MEDS: HYDROCODONE/APAP 5-325MG TABLET PO PRN (10:05)
[2017-02-06] MEDS: LEVOFLOXACIN 250 MG TABLET PO SCH (10:05)
--- NOTE | 2017-02-06 19:30 | NUR ---
Received patient resting comfortably in bed. AAO X3. No acute distress noted. No SOB. Contact isolation maintained. Safety measures observed. Call light within reach. Will continue to monitor.
[2017-02-06 20:00] VITALS: BP 120/60
[2017-02-06] MEDS: TAMSULOSIN HCL 0.4 MG CAP.SR.24H PO SCH (21:35)
[2017-02-06] MEDS: ATORVASTATIN 20 MG TABLET PO SCH (21:35)
[2017-02-07] MEDS: ALBUTEROL SULFATE 2.5 MG/ 0.5 ML NEBU IH SCH ×6 (03:18→23:33)
[2017-02-07] MEDS: IPRATROPIUM BROMIDE 0.5 MG/2.5 ML NEBU NEB SCH ×6 (03:18→23:33)
--- NOTE | 2017-02-07 05:24 | NUR ---
Patient slept comfortably throughout the night. No acute distress noted. No discomfort at this time. Contact precaution observed. Safety measures maintained. Call light within reach. Will endorse to day shift RN. Continue to monitor.
[2017-02-07] MEDS: ACETAMINOPHEN/CODEINE 300-60 MG TABLET PO SCH ×3 (06:14→21:15)
[2017-02-07 08:49] VITALS: BP 108/64
[2017-02-07] MEDS: DONEPEZIL 10 MG TABLET PO SCH (08:59)
[2017-02-07] MEDS: ASPIRIN 81 MG TAB.CHEW PO SCH (08:59)
[2017-02-07] MEDS: predniSONE 20 MG TABLET PO SCH (09:00)
[2017-02-07] MEDS: LACTOBACILLUS RHAMNOSUS GG 1 EACH CAPSULE PO SCH ×2 (09:00→17:45)
[2017-02-07] MEDS: FLUTICASONE/VILANTEROL 1 EACH BLST.W.DEV INH SCH (09:05)
[2017-02-07] MEDS: RIVAROXABAN 10 MG TABLET PO SCH ×2 (09:05→17:47)
--- NOTE | 2017-02-07 10:40 | NUR ---
Pt reports a c/o familiar chest pain 12/24 described as crushing, and radiating from mid chest after eating snack. V/S taken 111/59, pulse 86, 96% RA, denies SOB and with no other distress noted at this time. Pt states Xanax as relieving factor with previous episodes. MD notified. PRN Tylenol and Xanax administered as ordered. Will continue to monitor closely.
[2017-02-07] MEDS: ALPRAZOLAM 0.5 MG TABLET PO PRN (10:41)
--- NOTE | 2017-02-07 11:22 | NUR ---
Pt reports a tolerable level of pain 2/10, no SOB, and no acute distress noted at this time. Continuing to monitor for any changes in status. Call light within reach.
[2017-02-07] MEDS: LEVOFLOXACIN 250 MG TABLET PO SCH (11:40)
--- NOTE | 2017-02-07 12:00 | NUR ---
Pt reports no c/o pain at this time. Orders received from MD for CBC, CMP, mg, PO4, Troponin, and BNP to be drawn. Blood work drawn and sent to lab. Will continue to monitor and f/u with plan of care.
[2017-02-07 12:07] LABS: A/G RATIO 1.3 (0.7-1.7); ALBUMIN 3.3 g/dL (2.9-4.4); ALPHA-1-GLOBULIN 0.2 g/dL (0.0-0.4); ALPHA-2-GLOBULIN 0.8 g/dL (0.4-1.0); BETA GLOBULIN 0.8 g/dL (0.7-1.3); GAMMA GLOBULIN 0.7 g/dL (0.4-1.8); GLOBULIN, TOTAL 2.5 g/dL (2.2-3.9); M-SPIKE Not Observed g/dL (Not Observed)
--- NOTE | 2017-02-07 12:30 | NUR ---
Pt WBC lab values of 21.[address] Oliveros made aware. Will carry out orders to continue to monitor vitals until further notice.
[2017-02-07 12:54] LABS: ALANINE AMINOTRANSFERASE 39 U/L (16-63); ALKALINE PHOSPHATASE 52 U/L (50-136); ASPARTATE AMINOTRANSFERASE 21 U/L (15-37); BILIRUBIN,TOTAL 0.5 mg/dL (0.2-1.0); CARBON DIOXIDE 25 mmol/L (21-32); CHLORIDE 100 mmol/L (98-107); CREATININE 1.5 mg/dL (0.6-1.3); GLUCOSE 130 mg/dL (74-106); MAGNESIUM 1.7 mg/dL (1.8-2.4); PHOSPHOROUS 3.1 mg/dL (2.5-4.9); TOTAL PROTEIN, SERUM 6.7 g/dL (6.4-8.2); UREA NITROGEN, BLOOD 36 mg/dL (7-18)
[2017-02-07 12:58] LABS: HEMATOCRIT 43.7 % (40-50); HEMOGLOBIN 14.2 G/DL (14.0-18.0); LYMPHOCYTES % (AUTO) 9.3 % (20.5-51.5); MEAN CORPUSCULAR HEMOGLOBIN 27.1 UUG (27.0-31.0); MEAN CORPUSCULAR HGB CONC 33 g/dL (32.0-37.0); MEAN CORPUSCULAR VOLUME 83.4 FL (82.0-92.0); MONOCYTES # (AUTO) 0.1 K/UL (0.1-1.30); MONOCYTES % (AUTO) 0.5 % (0.0-11.0); NEUTROPHILS # (AUTO) 19.5 K/UL (1.8-8.9); NEUTROPHILS % (AUTO) 90.2 % (38.5-71.5); PLATELET COUNT (AUTO) 227 K/UL (150-450); RED BLOOD CELL COUNT(AUTO) 5.24 MIL/UL (4.7-6.1); WHITE BLOOD COUNT (AUTO) 21.6 K/UL (4.0-11.2)
[2017-02-07 13:28] LABS: BAND % (MANUAL) 2 % (0-10); LYMPHOCYTES % (MANUAL) 11 % (20-40); MONOCYTES % (MANUAL) 2 % (2-10); NEUTROPHILS % (MANUAL) 85 % (42-75)
--- NOTE | 2017-02-07 13:53 | NUR ---
INTERDISCIPLINARY TEAM SUMMARY
--- NOTE | 2017-02-07 14:45 | NUR ---
Pt denies any c/o pain at this time. Request to hold medication at this time due to comfort. V/S 102/59, 86, 20, 98.1 temp, 96% on O2 with breathing Tx currently taking place by RT, pain rated 0/10. Will continue to monitor and f/u.
--- NOTE | 2017-02-07 19:12 | NUR ---
Pt v/s have continued to remain stable with no changes in condition. All comfort and safety measures have been met at this time. Pt reports no complaints of pain and no acute distress to be noted. Will continue to monitor for any changes and endorse shift event to oncoming night monitor.
--- NOTE | 2017-02-07 19:30 | NUR ---
Received patient sleeping comfortably. No acute distress noted. Contact isolation of MRSA nares observed. Safety measures maintained. Call light within reach. Will continue to monitor.
[2017-02-07 20:00] VITALS: BP 117/76
[2017-02-07] MEDS: ATORVASTATIN 20 MG TABLET PO SCH (21:15)
[2017-02-07] MEDS: MUPIROCIN 2% OINT 22 GM TUBE NS SCH (21:15)
[2017-02-07] MEDS: TAMSULOSIN HCL 0.4 MG CAP.SR.24H PO SCH (21:17)
[2017-02-08] MEDS: ALBUTEROL SULFATE 2.5 MG/ 0.5 ML NEBU IH SCH ×6 (03:35→22:43)
[2017-02-08] MEDS: IPRATROPIUM BROMIDE 0.5 MG/2.5 ML NEBU NEB SCH ×6 (03:35→22:43)
--- NOTE | 2017-02-08 05:32 | NUR ---
Patient slept comfortably t/o the night. Vital signs stable. No acute distress noted. Medication given as prescribed and tolerated. All needs attended to promptly. Contact isolation observed for MRSA nares. Safety measures maintained. Call light within reach. Will endorse to day shift RN. Continue to monitor.
[2017-02-08] MEDS: ACETAMINOPHEN/CODEINE 300-60 MG TABLET PO SCH ×3 (06:00→21:06)
[2017-02-08 08:26] VITALS: BP 107/52
[2017-02-08] MEDS: MUPIROCIN 2% OINT 22 GM TUBE NS SCH ×2 (09:02→21:08)
[2017-02-08] MEDS: FLUTICASONE/VILANTEROL 1 EACH BLST.W.DEV INH SCH (09:02)
[2017-02-08] MEDS: predniSONE 20 MG TABLET PO SCH (09:03)
[2017-02-08] MEDS: DONEPEZIL 10 MG TABLET PO SCH (09:03)
[2017-02-08] MEDS: ASPIRIN 81 MG TAB.CHEW PO SCH (09:03)
[2017-02-08] MEDS: LACTOBACILLUS RHAMNOSUS GG 1 EACH CAPSULE PO SCH ×2 (09:03→17:11)
[2017-02-08] MEDS: RIVAROXABAN 10 MG TABLET PO SCH ×2 (09:04→17:13)
--- NOTE | 2017-02-08 09:30 | NUR ---
SBAR report received near bedside, board updated. Pt assessed, states no c/o pain or discomfort at this time. Pt compliant with all routine morning medications. Both personal items and call light within reach. All comfort and safety measures met. Will continue to monitor.
[2017-02-08] MEDS: LEVOFLOXACIN 250 MG TABLET PO SCH (11:56)
--- NOTE | 2017-02-08 18:11 | NUR ---
Pt sitting up comfortably in bed. OT reports Pt refused to work with therapists even after several attempts to provide therapy and care. Pt has made his request known to be assisted with shaving tomorrow morning. All safety measures in place and call light within reach. Will continue to monitor and endorse night club manager.
--- NOTE | 2017-02-08 19:30 | NUR ---
RECEIVED PT FROM DAY SHIFT NURSE. SHIFT REPORT AT BEDSIDE. PATIENT LYING IN BED COMFORTABLY WITH NO SIGNS OF PAIN, SOB, OR ACUTE DISTRESS. PERTINENT ASSESSMENTS DONE. SAFETY MEASURES IMPLEMENTED. CALL LIGHT PLACED WITHIN REACH. WILL CONTINUE TO MONITOR PT THROUGH OUT SHIFT.
[2017-02-08 20:00] VITALS: BP 112/64
[2017-02-08] MEDS: TAMSULOSIN HCL 0.4 MG CAP.SR.24H PO SCH (21:06)
[2017-02-08] MEDS: ATORVASTATIN 20 MG TABLET PO SCH (21:07)
[2017-02-09] MEDS: IPRATROPIUM BROMIDE 0.5 MG/2.5 ML NEBU NEB SCH ×6 (02:32→22:41)
[2017-02-09] MEDS: ALBUTEROL SULFATE 2.5 MG/ 0.5 ML NEBU IH SCH ×6 (02:32→22:41)
--- NOTE | 2017-02-09 02:32 | NUR ---
Pt asleep. No respiratory distress noted. HHN tx not given. RN Garcia aware.
[2017-02-09] MEDS: ACETAMINOPHEN/CODEINE 300-60 MG TABLET PO SCH ×3 (06:21→22:10)
--- NOTE | 2017-02-09 06:52 | NUR ---
PT SLEPT WELL THROUGH OUT SHIFT. NO SIGNS OF PAIN, SOB, OR ACUTE DISTRESS. ALL NEEDS ATTENDED TO. MEDICATIONS ADMINISTERED ORDERED. CALL LIGHT WITHIN REACH OF PT. SAFETY MEASURES IMPLEMENTED. WILL ENDORSE TO DAY SHIFT NURSE.
[2017-02-09 07:48] LABS: BASOPHILS % (AUTO) 0.2 % (0.0-2.0); EOSINOPHILS # (AUTO) 0.1 K/uL (0.0-0.7); EOSINOPHILS % (AUTO) 0.4 % (0.0-7.0); HEMATOCRIT 41.3 % (40-50); HEMOGLOBIN 13.8 G/DL (14.0-18.0); LYMPHOCYTES # (AUTO) 3.2 K/UL (0.8-4.8); LYMPHOCYTES % (AUTO) 21.5 % (20.5-51.5); MEAN CORPUSCULAR HEMOGLOBIN 27.5 UUG (27.0-31.0); MEAN CORPUSCULAR HGB CONC 33 g/dL (32.0-37.0); MEAN CORPUSCULAR VOLUME 82.4 FL (82.0-92.0); MONOCYTES # (AUTO) 0.8 K/UL (0.1-1.30); MONOCYTES % (AUTO) 5.2 % (0.0-11.0); NEUTROPHILS # (AUTO) 10.9 K/UL (1.8-8.9); NEUTROPHILS % (AUTO) 72.7 % (38.5-71.5); PLATELET COUNT (AUTO) 168 K/UL (150-450); RED BLOOD CELL COUNT(AUTO) 5.01 MIL/UL (4.7-6.1)
[2017-02-09 08:04] LABS: CARBON DIOXIDE 27 mmol/L (21-32); CHLORIDE 99 mmol/L (98-107); CREATININE 1.4 mg/dL (0.6-1.3); GLUCOSE 94 mg/dL (74-106); MAGNESIUM 1.5 mg/dL (1.8-2.4); PHOSPHOROUS 3.7 mg/dL (2.5-4.9); POTASSIUM 3.7 mmol/L (3.5-5.1); UREA NITROGEN, BLOOD 25 mg/dL (7-18)
[2017-02-09 08:14] LABS: BAND % (MANUAL) 1 % (0-10); LYMPHOCYTES % (MANUAL) 30 % (20-40); MONOCYTES % (MANUAL) 8 % (2-10); NEUTROPHILS % (MANUAL) 61 % (42-75)
[2017-02-09 08:56] VITALS: BP 109/71
[2017-02-09] MEDS: predniSONE 20 MG TABLET PO SCH (09:23)
[2017-02-09] MEDS: ASPIRIN 81 MG TAB.CHEW PO SCH (09:23)
[2017-02-09] MEDS: FLUTICASONE/VILANTEROL 1 EACH BLST.W.DEV INH SCH (09:23)
[2017-02-09] MEDS: LACTOBACILLUS RHAMNOSUS GG 1 EACH CAPSULE PO SCH ×2 (09:23→17:13)
[2017-02-09] MEDS: DONEPEZIL 10 MG TABLET PO SCH (09:23)
[2017-02-09] MEDS: RIVAROXABAN 10 MG TABLET PO SCH ×2 (09:24→17:13)
[2017-02-09] MEDS: MUPIROCIN 2% OINT 22 GM TUBE NS SCH ×2 (09:30→22:10)
[2017-02-09] MEDS: LEVOFLOXACIN 250 MG TABLET PO SCH (11:34)
[2017-02-09] MEDS ORDERED: MAGNESIUM OXIDE 400 MG TABLET PO ONE (12:45)
[2017-02-09] MEDS: DOCUSATE SODIUM 100 MG CAPSULE PO SCH ×2 (13:50→22:09)
--- NOTE | 2017-02-09 15:57 | NUR ---
Pt alert and compliant with all routine morning and afternoon medications, including new orders. Pt assessed, no c/o pain, SOB, or any acute distress. V/S stable. Pt assisted to shave and Pt family visited at bedside this afternoon. Prune juice and Colace provided to Pt in order to improve bowel function r/t constipation. All comfort and safety measures met. Call light and personal items within reach. Will continue to monitor.
--- NOTE | 2017-02-09 18:28 | NUR ---
Pt sitting up comfortably in bed. Compliant with evening medication administration. No SOB or acute distress noted at this time. Pt reports effective pain management during this shift from Tylenol administration Q8hrs. All safety and comfort measures in place. Call light within place and personal items within reach. Will continue to monitor and endorse to slot shift supervisor.
[2017-02-09 20:00] VITALS: BP 118/60
--- NOTE | 2017-02-09 21:00 | NUR ---
Received pt on bed alert, awake and oriented. No acute distress noted. Calm and cooperative to care. Complained of abdominal pain, routine pain meds given as ordered, tolerated well. No SOB noted. Vital signs stable. Contact precaution observed and maintained. Call light within reach. All needs met. Will continue to monitor.
[2017-02-09] MEDS: TAMSULOSIN HCL 0.4 MG CAP.SR.24H PO SCH (22:09)
[2017-02-09] MEDS: ATORVASTATIN 20 MG TABLET PO SCH (22:09)
[2017-02-10] MEDS: IPRATROPIUM BROMIDE 0.5 MG/2.5 ML NEBU NEB SCH ×6 (02:31→23:54)
[2017-02-10] MEDS: ALBUTEROL SULFATE 2.5 MG/ 0.5 ML NEBU IH SCH ×6 (02:32→23:54)
--- NOTE | 2017-02-10 02:32 | NUR ---
Pt asleep. No respiratory distress noted. HHN tx not given. MEIR lowe.
[2017-02-10] MEDS: ACETAMINOPHEN/CODEINE 300-60 MG TABLET PO SCH ×3 (06:25→21:18)
--- NOTE | 2017-02-10 06:55 | NUR ---
Pt slept well throughout the shift. No s/sx of distress. Denies pain. No SOB noted. Due meds given as ordered and well tolerated. Call light within reach. All needs attended
[2017-02-10 08:25] VITALS: BP 102/61
[2017-02-10] MEDS: ASPIRIN 81 MG TAB.CHEW PO SCH (08:37)
[2017-02-10] MEDS: LACTOBACILLUS RHAMNOSUS GG 1 EACH CAPSULE PO SCH ×2 (08:37→16:57)
[2017-02-10] MEDS: DOCUSATE SODIUM 100 MG CAPSULE PO SCH ×2 (08:37→21:18)
[2017-02-10] MEDS: RIVAROXABAN 10 MG TABLET PO SCH ×2 (08:37→16:57)
[2017-02-10] MEDS: predniSONE 5 MG TABLET PO SCH (08:37)
[2017-02-10] MEDS: DONEPEZIL 10 MG TABLET PO SCH (08:37)
[2017-02-10] MEDS: MUPIROCIN 2% OINT 22 GM TUBE NS SCH ×2 (08:38→21:17)
[2017-02-10] MEDS: FLUTICASONE/VILANTEROL 1 EACH BLST.W.DEV INH SCH (08:38)
[2017-02-10] MEDS ORDERED: predniSONE 20 MG TABLET PO SCH (09:00)
[2017-02-10] MEDS: LEVOFLOXACIN 250 MG TABLET PO SCH (12:24)
--- NOTE | 2017-02-10 19:30 | NUR ---
Received patient sleeping. No s/s of distress. Respirations even and unlabored. Call light within reach. Will continue to monitor.
[2017-02-10 20:00] VITALS: BP 118/67
[2017-02-10] MEDS: TAMSULOSIN HCL 0.4 MG CAP.SR.24H PO SCH (21:17)
[2017-02-10] MEDS: ATORVASTATIN 20 MG TABLET PO SCH (21:17)
[2017-02-11] MEDS: ALBUTEROL SULFATE 2.5 MG/ 0.5 ML NEBU IH SCH ×6 (03:09→23:29)
[2017-02-11] MEDS: IPRATROPIUM BROMIDE 0.5 MG/2.5 ML NEBU NEB SCH ×6 (03:09→23:29)
--- NOTE | 2017-02-11 06:38 | NUR ---
Patient awake, no complaints of pain. Kept clean and comfortable. Slept well through the night. Frequent checks done. No s/s of distress. Needs attended. Due meds given. Call light kept within reach. Requested 6AM dose of Tylenol be given with breakfast. Endorsed accordingly.
[2017-02-11] MEDS: ACETAMINOPHEN/CODEINE 300-60 MG TABLET PO SCH ×3 (06:52→21:22)
[2017-02-11] MEDS: DONEPEZIL 10 MG TABLET PO SCH (08:10)
[2017-02-11] MEDS: LACTOBACILLUS RHAMNOSUS GG 1 EACH CAPSULE PO SCH ×2 (08:10→18:57)
[2017-02-11] MEDS: DOCUSATE SODIUM 100 MG CAPSULE PO SCH ×2 (08:10→18:57)
[2017-02-11] MEDS: FLUTICASONE/VILANTEROL 1 EACH BLST.W.DEV INH SCH (08:10)
[2017-02-11] MEDS: ASPIRIN 81 MG TAB.CHEW PO SCH (08:10)
[2017-02-11] MEDS: RIVAROXABAN 10 MG TABLET PO SCH ×2 (08:11→18:58)
[2017-02-11] MEDS: predniSONE 5 MG TABLET PO SCH (08:15)
[2017-02-11] MEDS: MUPIROCIN 2% OINT 22 GM TUBE NS SCH ×2 (08:16→20:31)
[2017-02-11] MEDS: LEVOFLOXACIN 250 MG TABLET PO SCH (11:00)
[2017-02-11] MEDS: ALPRAZOLAM 0.5 MG TABLET PO PRN (18:58)
--- NOTE | 2017-02-11 19:30 | NUR ---
PT ALERT AND ORIENTED IN BED. NO DISTRESS NOTED. COMPLIANT WITH NURSING CARE. CLEAN AND DRY. TURNED AND REPOSITIONED. CONTACT ISOLATION MAINTAINED. SAFETY MAINTAINED. CALL LIGHT WITHIN REACH.
[2017-02-11 20:00] VITALS: BP 98/69
[2017-02-11] MEDS: ATORVASTATIN 20 MG TABLET PO SCH (20:31)
[2017-02-11] MEDS: TAMSULOSIN HCL 0.4 MG CAP.SR.24H PO SCH (20:31)
[2017-02-12] MEDS: ALBUTEROL SULFATE 2.5 MG/ 0.5 ML NEBU IH SCH ×6 (03:30→23:19)
[2017-02-12] MEDS: IPRATROPIUM BROMIDE 0.5 MG/2.5 ML NEBU NEB SCH ×6 (03:30→23:19)
[2017-02-12] MEDS: ACETAMINOPHEN/CODEINE 300-60 MG TABLET PO SCH ×3 (06:17→21:46)
--- NOTE | 2017-02-12 07:05 | NUR ---
PT ALERT AND ORIENTED IN BED. NO DISTRESS NOTED. ISOLATION MAINTAINED. CLEAN AND DRY. TURNED AND REPOSITIONED. SAFETY MAINTAINED. CALL LIGHT WITHIN REACH.
[2017-02-12 07:10] VITALS: BP 102/57
[2017-02-12 07:35] LABS: CARBON DIOXIDE 27 mmol/L (21-32); CHLORIDE 103 mmol/L (98-107); CREATININE 1.4 mg/dL (0.6-1.3); GLUCOSE 99 mg/dL (74-106); MAGNESIUM 1.7 mg/dL (1.8-2.4); PHOSPHOROUS 3.4 mg/dL (2.5-4.9); POTASSIUM 3.6 mmol/L (3.5-5.1); UREA NITROGEN, BLOOD 26 mg/dL (7-18)
[2017-02-12 08:09] LABS: BASOPHILS # (AUTO) 0.2 K/uL (0.0-8.0); BASOPHILS % (AUTO) 1.4 % (0.0-2.0); EOSINOPHILS # (AUTO) 0.1 K/uL (0.0-0.7); EOSINOPHILS % (AUTO) 0.6 % (0.0-7.0); HEMATOCRIT 40.2 % (40-50); HEMOGLOBIN 13.5 G/DL (14.0-18.0); LYMPHOCYTES # (AUTO) 2.7 K/UL (0.8-4.8); LYMPHOCYTES % (AUTO) 21.5 % (20.5-51.5); MEAN CORPUSCULAR HEMOGLOBIN 27.7 UUG (27.0-31.0); MEAN CORPUSCULAR HGB CONC 34 g/dL (32.0-37.0); MEAN CORPUSCULAR VOLUME 82.2 FL (82.0-92.0); MONOCYTES # (AUTO) 0.9 K/UL (0.1-1.30); MONOCYTES % (AUTO) 6.8 % (0.0-11.0); NEUTROPHILS # (AUTO) 8.8 K/UL (1.8-8.9); NEUTROPHILS % (AUTO) 69.7 % (38.5-71.5); PLATELET COUNT (AUTO) 162 K/UL (150-450); RED BLOOD CELL COUNT(AUTO) 4.88 MIL/UL (4.7-6.1); WHITE BLOOD COUNT (AUTO) 12.7 K/UL (4.0-11.2)
[2017-02-12] MEDS: ASPIRIN 81 MG TAB.CHEW PO SCH (08:46)
[2017-02-12] MEDS: LACTOBACILLUS RHAMNOSUS GG 1 EACH CAPSULE PO SCH ×2 (08:46→16:51)
[2017-02-12] MEDS: predniSONE 5 MG TABLET PO SCH (08:46)
[2017-02-12] MEDS: DONEPEZIL 10 MG TABLET PO SCH (08:46)
[2017-02-12] MEDS: FLUTICASONE/VILANTEROL 1 EACH BLST.W.DEV INH SCH (08:48)
[2017-02-12] MEDS: RIVAROXABAN 10 MG TABLET PO SCH ×2 (08:49→16:50)
[2017-02-12] MEDS: MUPIROCIN 2% OINT 22 GM TUBE NS SCH ×2 (08:53→20:13)
[2017-02-12] MEDS: DOCUSATE SODIUM 100 MG CAPSULE PO SCH ×2 (09:00→20:11)
--- NOTE | 2017-02-12 10:06 | NUR ---
PATIENT NOTED SITTING UP IN BED, BED LOCKED AN IN LOWEST POSITION, NO COMPLAINTS OF PAIN, NO SIGNS OF DISTRESS, CALL LIGHT IN REACH
[2017-02-12] MEDS: LEVOFLOXACIN 250 MG TABLET PO SCH (11:13)
[2017-02-12] MEDS ORDERED: MAGNESIUM OXIDE 400 MG TABLET PO ONE (16:00)
[2017-02-12] MEDS ORDERED: BISACODYL 5 MG TABLET.DR PO ONE (19:30)
--- NOTE | 2017-02-12 19:30 | NUR ---
Received patient in bed, alert, awake and verbally responsive. O2 via NC on 2LPM continuous, breathing even and non labored and was on moderate high back position. Vital signs checked, stable : BP 136/59, T 98, P 59, R 18, O2 sat 96%. Seen by Dr. Garrett, relayed lab. results with new orders noted and carried out. Dr. Oliveros also made aware of lab. results, with new orders noted and carried out too. When asked if she was in pain, she said her pain level was 4/10 on R hip but refused to take pain meds. Placed ice compress on her R hip at this time. Safety precautions provided. Placed call light in reach. Will continue to monitor.
[2017-02-12 19:39] VITALS: BP 103/45
[2017-02-12 19:58] VITALS: BP 109/66
[2017-02-12] MEDS: TAMSULOSIN HCL 0.4 MG CAP.SR.24H PO SCH (20:11)
[2017-02-12] MEDS: ATORVASTATIN 20 MG TABLET PO SCH (20:11)
[2017-02-13] MEDS: ALBUTEROL SULFATE 2.5 MG/ 0.5 ML NEBU IH SCH ×6 (03:22→22:34)
[2017-02-13] MEDS: IPRATROPIUM BROMIDE 0.5 MG/2.5 ML NEBU NEB SCH ×6 (03:22→22:35)
[2017-02-13 06:49] LABS: CARBON DIOXIDE 28 mmol/L (21-32); CHLORIDE 101 mmol/L (98-107); CREATININE 1.2 mg/dL (0.6-1.3); GLUCOSE 99 mg/dL (74-106); MAGNESIUM 1.7 mg/dL (1.8-2.4); POTASSIUM 3.7 mmol/L (3.5-5.1); UREA NITROGEN, BLOOD 23 mg/dL (7-18)
[2017-02-13] MEDS ORDERED: LACTULOSE 20 G/30 ML LIQUID UDC PO PRN (07:45)
[2017-02-13 08:43] VITALS: BP 103/63
[2017-02-13] MEDS ORDERED: predniSONE 5 MG TABLET PO SCH (09:00)
--- NOTE | 2017-02-13 09:00 | NUR ---
Received patient awake in bed, alert x3. Not in any form of distress. In room air O2 Sat WNL. No chest pains noted. With Abdominal pain, routine pain medication given.
[2017-02-13] MEDS: ACETAMINOPHEN/CODEINE 300-60 MG TABLET PO SCH ×3 (09:51→22:04)
[2017-02-13] MEDS: MUPIROCIN 2% OINT 22 GM TUBE NS SCH (09:52)
[2017-02-13] MEDS: FLUTICASONE/VILANTEROL 1 EACH BLST.W.DEV INH SCH (09:52)
[2017-02-13] MEDS: RIVAROXABAN 10 MG TABLET PO SCH ×2 (09:53→17:41)
[2017-02-13] MEDS: DONEPEZIL 10 MG TABLET PO SCH (09:54)
[2017-02-13] MEDS: predniSONE 10 MG TABLET PO SCH (09:54)
[2017-02-13] MEDS: ASPIRIN 81 MG TAB.CHEW PO SCH (09:54)
[2017-02-13] MEDS: LACTOBACILLUS RHAMNOSUS GG 1 EACH CAPSULE PO SCH ×2 (09:54→17:41)
[2017-02-13] MEDS: DOCUSATE SODIUM 100 MG CAPSULE PO SCH ×2 (09:54→20:41)
[2017-02-13] MEDS ORDERED: MAGNESIUM OXIDE 400 MG TABLET PO ONE (12:45)
--- NOTE | 2017-02-13 18:44 | NUR ---
Patient resting in bed. No complaints of pain or discomfort. No SOB or chest pains. Assisted no needs promptly. Call light within reach.
--- NOTE | 2017-02-13 19:30 | NUR ---
Patient seen during rounds on bed, sleeping but arouses easily. Vital signs are WNL T 98.4, P 76, R 19, O2 97% on room air. Denies pain. Breathing even and non labored. Placed call light within reach.
[2017-02-13] MEDS: TAMSULOSIN HCL 0.4 MG CAP.SR.24H PO SCH (20:40)
[2017-02-13] MEDS: ATORVASTATIN 20 MG TABLET PO SCH (20:41)
[2017-02-13 20:43] VITALS: BP 127/73
[2017-02-14] MEDS: ALBUTEROL SULFATE 2.5 MG/ 0.5 ML NEBU IH SCH ×4 (02:37→14:31)
[2017-02-14] MEDS: IPRATROPIUM BROMIDE 0.5 MG/2.5 ML NEBU NEB SCH ×4 (02:37→14:31)
--- NOTE | 2017-02-14 05:51 | NUR ---
Patient slept the entire night without any complains of pain or discomfort. Vital signs are still stable without any signs of distress. MRSA swab done and sent to the lab. Patient possible for discharge to home today. Patient is happy and very excited to go home, expressed that he can't wait to be with his dog again. Will endorse to AM shift nurse.
[2017-02-14] MEDS: ACETAMINOPHEN/CODEINE 300-60 MG TABLET PO SCH ×2 (05:56→15:10)
--- NOTE | 2017-02-14 07:55 | NUR ---
patient noted resting in bed with eyes closed, no signs of distress noted, no complaints of pain, call light in reach, bed locked and in lowest position
[2017-02-14 08:07] VITALS: BP 100/62
[2017-02-14] MEDS: RIVAROXABAN 10 MG TABLET PO SCH (08:25)
[2017-02-14] MEDS: FLUTICASONE/VILANTEROL 1 EACH BLST.W.DEV INH SCH (08:25)
[2017-02-14] MEDS: DOCUSATE SODIUM 100 MG CAPSULE PO SCH (08:26)
[2017-02-14] MEDS: DONEPEZIL 10 MG TABLET PO SCH (08:26)
[2017-02-14] MEDS: predniSONE 10 MG TABLET PO SCH (08:26)
[2017-02-14] MEDS: LACTOBACILLUS RHAMNOSUS GG 1 EACH CAPSULE PO SCH (08:26)
[2017-02-14] MEDS: ASPIRIN 81 MG TAB.CHEW PO SCH (08:27)
--- NOTE | 2017-02-14 15:32 | NUR ---
130/72, 92% ON ROOM AIR, 18 RESPIRATIONS, 96 PULSE, 97.5 ORAL TEMPERATURE, NO COMPLAINTS OF PAIN AT THIS TIME, NO SIGNS OF DISTRESS, STABLE CONDITION, EXIT CARE PROVIDED, DISCHARGE INSTRUCTIONS GIVEN, ALL BELONGING RETURNED INCLUDING 90 DOLLARS IN [place], PATIENT TRANSFERRED HOME VIA AMBULANCE ([facility] HOME HEALTH ARRANGED ( [facility]), LEFT SIDED MID LINE DISCONTINUED, PRESSURE APPLIED TO SITE FOR TEN MINUTES WITH PRESSURE DRESSING, PATIENT WILL MAKE FOLLOW UP APPOINTMENT WITH OWN PRIMARY CARE PHYSICIAN, WHEELCHAIR (DME) PROVIDED.
--- NOTE | 2017-02-16 15:38 | NUR ---
I Agree Addendum: 02/16/17 at 1539 by YESSY GRIMALDO OT Amended: Links added.
== END 2017-02-14 15:31 | disposition home health service (06) | DRG 190 ==
PROVIDERS: ADMIT Physical Medicine & Rehabilitation Pain Medicine; ATTEND Physical Medicine & Rehabilitation Pain Medicine
DX: J44.1 Chronic obstructive pulmonary disease with (acute) exacerbation (principal); E43 Unspecified severe protein-calorie malnutrition; N17.0 Acute kidney failure with tubular necrosis; J96.01 Acute respiratory failure with hypoxia; I82.431 Acute embolism and thrombosis of right popliteal vein; D68.59 Other primary thrombophilia; E87.5 Hyperkalemia; I50.32 Chronic diastolic (congestive) heart failure; I11.0 Hypertensive heart disease with heart failure; E83.39 Other disorders of phosphorus metabolism; J98.11 Atelectasis; F01.50 Vascular dementia, unspecified severity, without behavioral disturbance, psychotic disturbance, mood disturbance, and anxiety; F03.90 Unspecified dementia, unspecified severity, without behavioral disturbance, psychotic disturbance, mood disturbance, and anxiety; F32.9 Major depressive disorder, single episode, unspecified; Z86.73 Personal history of transient ischemic attack (TIA), and cerebral infarction without residual deficits; Z86.711 Personal history of pulmonary embolism; N40.0 Benign prostatic hyperplasia without lower urinary tract symptoms; R68.83 Chills (without fever); R09.02 Hypoxemia; I25.2 Old myocardial infarction; D72.829 Elevated white blood cell count, unspecified; G47.00 Insomnia, unspecified; K21.9 Gastro-esophageal reflux disease without esophagitis; K59.00 Constipation, unspecified; R31.29 Other microscopic hematuria; R73.03 Prediabetes; Z87.891 Personal history of nicotine dependence; K30 Functional dyspepsia; R19.7 Diarrhea, unspecified; R79.89 Other specified abnormal findings of blood chemistry; R45.1 Restlessness and agitation; R53.1 Weakness
CPT/HCPCS: 36415; 70030-TC; 71010; 76770; 83735; 83970; 84100; 84155; 84156; 84165; 84300; 85025; 86625; 87040; 87046; 87086; 87177; 92523; 93005; 94640; 94664; 97110; 97112; 97116; 97530; 97535; J0500; J3590; J7030; J7512; Q0162